=== PATIENT | female | born 1970 | race Caucasian/White ===

== ENCOUNTER → 2021-09-22 | Outpatient (CLI) | payer MEDICARE, OTHER ==
[~2021-09-22] MED LIST: BENADRYL 50MG C50 MG PO; LODINE CAP 300300 MG PO; ZOFRAN ODT 4 MG4 MG SL
== END ==
LOC: MAMO 06-22 08:30 → EXRD 06-22 08:30 → MAMO 10:30
DX: Z12.31 Encounter for screening mammogram for malignant neoplasm of breast (principal); M81.0 Age-related osteoporosis without current pathological fracture
CPT/HCPCS: 77063; 77067; 77080

== ENCOUNTER → 2021-12-03 | Outpatient (CLI) | payer MEDICARE, OTHER ==
[2021-12-03 15:14] LABS: HEMOGLOBIN 10.5 gm/dl (12.3-15.3); RED BLOOD COUNT 4.16 M/UL (4.00-5.10); WHITE BLOOD COUNT 4.9 K/UL (4.5-11.0)
[2021-12-03 15:36] LABS: BUN/CREATININE RATIO 16 (0-10)
== END ==
LOC: LAB 14:27
PROVIDERS: Nurse Practitioner
DX: K62.5 Hemorrhage of anus and rectum (principal)
CPT/HCPCS: 36415; 71046; 80048; 85025; 93005